=== PATIENT | male | born 1995 | race Caucasian/White ===

== ENCOUNTER 2017-02-23 18:01 | Emergency (ER) | payer OTHER ==
--- NOTE | 2017-02-23 18:50 | ED EYE COMPLAINT ---
History of Present Illness General Chief Complaint: Animal/Insect Bite Stated Complaint: ?BITE TO LEFT EYE Source: patient Exam Limitations: no limitations Vital Signs & Intake/Output Vital Signs & Intake/Output Vital Signs Date Time Temp Pulse Resp B/P B/P Pulse O2 O2 Flow FiO2 Mean Ox Delivery Rate 02/24 2016 98.4 68 18 140/67 100 Room Air 02/23 1809 98.3 100 20 131/83 99 ED Intake and Output 02/24 0000 02/23 1200 Intake Total 0 Output Total Balance 0 Intake, Oral 0 Patient 180 lb Weight Allergies Coded Allergies: No Known Allergies (02/23/17) Reconcile Medications Amoxicillin/Potassium Clav (Augmentin 875-125 Tablet) 875 MG-125 MG TABLET 1 TAB PO BID PERIORBITAL CELLULITIS Sulfamethoxazole/Trimethoprim (Bactrim Ds Tablet) 800 MG-160 MG TABLET 1 TAB PO BID PERIORBITAL CELLULITIS Triage Note: PER PT ? BIT BY SOMETHING THIS AM WOKE UP WITH L EYE SWOLLEN. Triage Nurses Notes Reviewed? yes Onset: Gradual Duration: constant Timing: recent history Injury Environment: home Severity: moderate Severity Numbers: 5 HPI: Patient is a 21-year-old male who presents to emergency room with concerns of left orbital redness swelling and tenderness. Patient denies any mechanism of injury or trauma to the region. Patient does wear contact lenses however denies any conjunctival redness or irritation blurred vision or change in visual acuity. Denies any fever chills. Denies any specific allergen or bug bite. (GUZMAN ELLIS) Past History Travel History Traveled to [place] past 21 day No Medical History Any Pertinent Medical History? none Neurological: NONE EENT: NONE Cardiovascular: NONE Respiratory: NONE Gastrointestinal: NONE Hepatic: NONE Renal: NONE Musculoskeletal: NONE Endocrine: NONE Surgical History Surgical History: non-contributory Psychosocial History What is your primary language Polish Tobacco Use: Never used Family History Hx Contributory? No (GUZMAN ELLIS) Review of Systems Review of Systems Constitutional: Reports: no symptoms. Eyes: Reports: see HPI, inflammation. Denies: blindness, blurred vision, drainage, decreased acuity, pain, photophobia. Ear: Reports: no symptoms. Nose: Reports: no symptoms. Mouth: Reports: no symptoms. Throat: Reports: no symptoms. Respiratory: Reports: no symptoms. Cardiovascular: Reports: no symptoms. GI: Reports: no symptoms. Genitourinary: Reports: no symptoms. Musculoskeletal: Reports: no symptoms. Skin: Reports: see HPI, erythema. Neurological/Psychological: Reports: no symptoms. Hematologic/Endocrine: Reports: no symptoms. Immunologic/Allergic: Reports: no symptoms. All Other Systems: Reviewed and Negative (GUZMAN ELLIS) Physical Exam General Appearance: no apparent distress, alert General Inspection: periorbital erythema, periorbital swelling Eyelid: normal inspection Conjunctiva/Sclera: normal inspection Cornea: normal inspection EOM: intact Pupil: normal accommodation, normal pupil, PERRL Eye Left 1) Noted inferior orbit moderate erythema warmth and tenderness skin intact no induration no fluctuance General Inspection: normal inspection Eyelid: normal inspection Conjunctiva/Sclera: normal inspection Cornea: normal inspection EOM: intact Pupil: normal accommodation, normal pupil, PERRL Physical Exam Head: atraumatic Ears: Bilateral: canal normal. Nose: normal inspection Mouth/Throat: normal mouth inspection Neck: normal inspection Skin: intact (GUZMAN ELLIS) Progress Differential Diagnosis: corneal abrasion, corneal foreign body, conjunctivitis, detached retina, glaucoma, globe rupture, retinal art./v. occlusion, pERIORBITAL ORBITAL CELLULITIS CELLULITIS Plan of Care: Orders Procedure Date/time Status CT ORBITS W IV CONTRAST 02/23 1859 Active Patient currently is in no apparent distress. Conjunctiva was normal on inspection patient was PERRLA. CT scan does show concerns of periorbital cellulitis. There are no concerns at this time of orbital cellulitis. Patient is afebrile no concerns of sepsis. Patient was given IV Unasyn and was strongly advised to follow-up with ophthalmology as he was given copies of CT scan. Discussed disposition plan in which he had no questions (GUZMAN ELLIS) Diagnostic Imaging: Viewed by Me: CT Scan. Radiology Impression: SEE COMMENTS Comments: PATIENT: GUZMAN GUDINO PRESENT AGE: 21 PATIENT ACCOUNT NO: [id number] : 97 LOCATION: [facility] ORDERING PHYSICIAN: GUZMAN ECHEVARRIA SERVICE DATE: 02/23/17 EXAM TYPE: CAT - CT ORBITS W IV CONTRAST EXAMINATION: CT SCAN OF THE ORBITS WITH CONTRAST CLINICAL INDICATION: Left periorbital cellulitis. COMPARISON: None. TECHNIQUE: CT scan of the orbits was obtained in the axial plane following the intravenous administration of 94 mL Optiray 320. The data was postprocessed at the cath lab radiological technologist workstation with generation of coronal and sagittal reformatted images. DLP: 210.71 mGy-cm. FINDINGS: There is soft tissue swelling around the inferior aspect of the left orbit extending to the left malar region. There is increased density in the subcutaneous fat. There is a small fluid collection along the inferior orbit anteriorly which has Hounsfield units of fluid, and it measures approximately 0.6 x 2.7 x 1.3 cm in oblique AP, transverse and craniocaudal dimensions. It is best demonstrated on images 14/31, series 5 and 30/134, series 301. It is preseptal. There are no radiopaque foreign bodies in or around the orbits. There is a retention cyst in the superior right maxillary sinus anteriorly with mild mucoperiosteal thickening inferiorly. There is moderate mucoperiosteal thickening in the bilateral ethmoid sinuses anteriorly and posteriorly and in the bilateral frontal sinuses. There is mild mucoperiosteal thickening in the right sphenoid sinus. The visualized mastoid air cells are well-aerated. The bilateral maxillary third molar teeth are unerupted and appear impacted. There are no periapical lucencies. The intracranial structures are unremarkable. The globes are symmetric. There is no proptosis. The lenses are in normal position. The extraocular muscles are symmetric and normal in appearance. The retrobulbar fat is maintained. The optic nerve sheath complexes appear unremarkable. The lacrimal apparatus is normal. There is no abnormal post septal or intraconal enhancement noted following intravenous contrast administration. The superior ophthalmic veins are normal in appearance. The cavernous sinuses, Meckel's caves, the optic chiasm and retrochiasmatic optic tracts are unremarkable. Views through the sella are unremarkable. IMPRESSION: 1. The study demonstrates soft tissue swelling around the inferior aspect of the left orbit extending to the left malar region. There is a small fluid collection along the inferior left orbit anteriorly. The findings are consistent with periorbital cellulitis inferiorly. 2. There are no radiopaque foreign bodies. 3. The post septal and intraconal structures are unremarkable. There is no proptosis. 4. There is relatively severe frontal and ethmoid sinus disease with milder changes in other sinuses as described above. DICTATED BY: ADOLFO LUNA MD DATE/TIME DICTATED:02/23/172032 OPTO MECHANICAL ENGINEER:BRETT DATE/TIME TRANSCRIBED:02/23/172032 (GUZMAN ELLIS) Departure Departure Disposition: HOME OR SELF CARE Condition: Stable Clinical Impression Primary Impression: Periorbital cellulitis of left eye Referrals: RALPH CARSON,JOSLYN Alford (PCP/Family) Additional Instructions: As discussed begin the prescription of Augmentin and Bactrim as directed for the full course. Begin to apply warm compresses the area. If symptoms worsen or if you develop a new concerning symptom return to emergency room. Follow-up first thing tomorrow with your established client service executive, please provide them with the CT scan report. Prescriptions waiting at [facility] Departure Forms: Customer Survey General Discharge Information Prescriptions: Current Visit Scripts Amoxicillin/Potassium Clav (Augmentin 875-125 Tablet) 1 TAB PO BID #20 TAB Sulfamethoxazole/Trimethoprim (Bactrim Ds Tablet) 1 TAB PO BID #20 TAB (GUZMAN ELLIS) PA/J2EE ANDROID DEVELOPER Co-Sign Statement Statement: ED Attending supervision documentation- I saw and evaluated the patient. I have also reviewed all the pertinent lab results and diagnostic results. I agree with the findings and the plan of care as documented in the PA's/J2EE ANDROID DEVELOPER's documentation. x I have reviewed the ED Record and agree with the PA's/J2EE ANDROID DEVELOPER's documentation. [] Additions or exceptions (if any) to the PAs/J2EE ANDROID DEVELOPER's note and plan are summarized below: [] (YANNICK CARSON,SHERRIE)
[2017-02-23 20:16] VITALS: BP 140/67
--- NOTE | 2017-02-23 20:49 | CT SCAN REPORT ---
EXAMINATION: CT SCAN OF THE ORBITS WITH CONTRAST CLINICAL INDICATION: Left periorbital cellulitis. COMPARISON: None. TECHNIQUE: CT scan of the orbits was obtained in the axial plane following the intravenous administration of 94 mL Optiray 320. The data was postprocessed at the cath lab radiological technologist workstation with generation of coronal and sagittal reformatted images. DLP: 210.71 mGy-cm. FINDINGS: There is soft tissue swelling around the inferior aspect of the left orbit extending to the left malar region. There is increased density in the subcutaneous fat. There is a small fluid collection along the inferior orbit anteriorly which has Hounsfield units of fluid, and it measures approximately 0.6 x 2.7 x 1.3 cm in oblique AP, transverse and craniocaudal dimensions. It is best demonstrated on images 14/31, series 5 and 30/134, series 301. It is preseptal. There are no radiopaque foreign bodies in or around the orbits. There is a retention cyst in the superior right maxillary sinus anteriorly with mild mucoperiosteal thickening inferiorly. There is moderate mucoperiosteal thickening in the bilateral ethmoid sinuses anteriorly and posteriorly and in the bilateral frontal sinuses. There is mild mucoperiosteal thickening in the right sphenoid sinus. The visualized mastoid air cells are well-aerated. The bilateral maxillary third molar teeth are unerupted and appear impacted. There are no periapical lucencies. The intracranial structures are unremarkable. The globes are symmetric. There is no proptosis. The lenses are in normal position. The extraocular muscles are symmetric and normal in appearance. The retrobulbar fat is maintained. The optic nerve sheath complexes appear unremarkable. The lacrimal apparatus is normal. There is no abnormal post septal or intraconal enhancement noted following intravenous contrast administration. The superior ophthalmic veins are normal in appearance. The cavernous sinuses, Meckel's caves, the optic chiasm and retrochiasmatic optic tracts are unremarkable. Views through the sella are unremarkable. IMPRESSION: 1. The study demonstrates soft tissue swelling around the inferior aspect of the left orbit extending to the left malar region. There is a small fluid collection along the inferior left orbit anteriorly. The findings are consistent with periorbital cellulitis inferiorly. 2. There are no radiopaque foreign bodies. 3. The post septal and intraconal structures are unremarkable. There is no proptosis. 4. There is relatively severe frontal and ethmoid sinus disease with milder changes in other sinuses as described above.
[2017-02-23] MEDS ORDERED: BACTRIM DS TAB1 EACH PO (21:05)
[2017-02-23] MEDS ORDERED: AUGMENTIN 875-1 EACH PO (21:05)
== END 2017-02-23 21:27 ==
LOC: ERH 18:01
DX: H05.012 Cellulitis of left orbit (principal)